=== PATIENT | male | born 1980 | race Two or more races ===

== ENCOUNTER 2019-11-29 14:40 | Day surgery (SDC) | payer OTHER ==
[2019-11-29] MEDS ORDERED: Sodium Chloride 0.9% 1,000 ML IV ONE (14:58)
[2019-11-29] MEDS ORDERED: Sodium Chloride 0.9% 2.5 ML Syringe FLUSH PRN ×3 (14:58→20:05)
[2019-11-29] MEDS ORDERED: Sodium Chloride 0.9% 10 ML Syringe FLUSH PRN ×2 (14:58→20:05)
[2019-11-29] MEDS ORDERED: Ondansetron 4 MG/2 ML SDV IVPUSH ONE (14:58)
[2019-11-29] MEDS ORDERED: Morphine 4 MG/ML Syringe IVPUSH PRN (14:59)
[2019-11-29] MEDS ORDERED: Morphine 2 MG/ML Syringe IVPUSH ONE (14:59)
--- NOTE | 2019-11-29 15:03 | EDM.PDOC ---
ED HPI GENERAL MEDICAL PROBLEM - General Chief Complaint: Abdominal Pain Stated Complaint: ABDOMINAL PAIN Time Seen by Provider: 11/29/19 14:49 - History of Present Illness INITIAL COMMENTS - FREE TEXT/NARRATIVE: History of present illness: Patient presents with abdominal pain since last night he states it came on suddenly he has been nauseous he tried to throw up but could not he states he is not passing any gas prior history of umbilical and inguinal hernia on the right he denies any other surgeries no other medical problems no allergies no fever nothing seems to make it better or worse H&P conducted with medical accounting clerk service. Review of systems: As per history of present illness and below otherwise all systems reviewed and negative. Past medical history: As per history of present illness and as reviewed below otherwise noncontributory. Surgical history: As per history of present illness and as reviewed below otherwise noncontributory. Social history: No reported history of drug or alcohol abuse. Family history: As per history of present illness and as reviewed below otherwise noncontributory. Physical exam: Constitutional: Well-developed thin male with moderate distress due to pain HEENT: Atraumatic, normocephalic, pupils reactive, negative for conjunctival pallor or scleral icterus, mucous membranes moist, throat clear, neck supple, nontender, trachea midline. Lungs: Clear to auscultation, breath sounds equal bilaterally, chest nontender. Heart: S1S2, regular, negative for clicks, rubs, or JVD. Abdomen: Soft, nondistended, tenderness and guarding. Negative for masses or hepatosplenomegaly. Negative for costovertebral tenderness. Pelvis: Stable nontender. Genitourinary: A supine exam is all this tolerated there does not appear to be any inguinal mass or scrotal mass no tenderness in the testicles no pain the penis upon circumcised no discharge. Rectal: Deferred. Extremities: Atraumatic, negative for cords or calf pain. Neurovascular unremarkable. Neuro: Awake, alert, oriented. Cranial nerves II through XII unremarkable. Cerebellum unremarkable. Motor and sensory unremarkable throughout. Exam nonfocal. Diagnostics: [] Therapeutics: [] Impression: [] Plan: Patient given medications for pain and nausea fluid bolus labs will be collected and CT abdomen pelvis will be obtained. Patient will then be reassessed [] Definitive disposition and diagnosis as appropriate pending reevaluation and review of above. LLQ Pain Score (Numeric/FACES): 10 - Related Data Allergies Allergy/AdvReac Type Severity Reaction Status Date / Time No Known Allergies Allergy Verified 11/30/19 00:21 Home Meds: Home Meds . [No Known Home Meds] 11/29/19 [History] Past Medical History HEENT History: Reports: None Cardiovascular History: Reports: None Respiratory History: Reports: None Gastrointestinal History: Reports: None Genitourinary History: Reports: None Musculoskeletal History: Reports: None Neurological History: Reports: None Psychiatric History: Reports: None Endocrine/Metabolic History: Reports: None Hematologic History: Reports: None Immunologic History: Reports: None Oncologic (Cancer) History: Reports: None Dermatologic History: Reports: None - Infectious Disease History Infectious Disease History: Reports: None - Past Surgical History Head Surgeries/Procedures: Reports: None HEENT Surgical History: Reports: None Cardiovascular Surgical History: Reports: None Respiratory Surgical History: Reports: None GI Surgical History: Reports: Hernia, Abdominal, Hernia, Inguinal Male Surgical History: Reports: None Endocrine Surgical History: Reports: None Neurological Surgical History: Reports: None Musculoskeletal Surgical History: Reports: None Oncologic Surgical History: Reports: None Dermatological Surgical History: Reports: None Social & Family History - Family History Family Medical History: Noncontributory - Tobacco Use Smoking Status *Q: Never Smoker - Caffeine Use Caffeine Use: Reports: None - Recreational Drug Use Recreational Drug Use: No ED ROS GENERAL - Review of Systems Review Of Systems: See Below ED EXAM, GENERAL - Physical Exam Exam: See Below Course - Vital Signs Text/Narrative:: At 1515 I discussed the case with see the patient. Patient was medicated with Zosyn 3.375 as well as placed on n.p.o. status and on lactated Ringer's at 150/h CT abdomen pelvis read by radiology as acute appendicitis with dilated appendix with appendicolith no free fluid Last Recorded V/S: Last Vital Signs Temp 36.3 C 11/30/19 04:32 Pulse 73 11/30/19 04:32 Resp 18 11/30/19 04:32 BP 107/76 11/30/19 04:32 Pulse Ox 96 11/30/19 04:32 - Orders/Labs/Meds Orders: Active Orders 24 hr Category Date Time Status Patient Status [ADT] Routine ADT 11/29/19 20:05 Active Intake and Output [RC] Q12H Care 11/29/19 20:06 Active Oxygen Therapy [RC] PRN Care 11/29/19 20:05 Active RT Incentive Spirometry [RC] Q1HWA Care 11/29/19 20:05 Active Up ad Cindy [RC] ASDIRECTED Care 11/29/19 20:05 Active Vital Signs [RC] Q4H Care 11/29/19 20:05 Active Regular Diet [DIET] Diet 11/30/19 Breakfast Active Acetaminophen [Ofirmev] 1,000 mg Med 11/29/19 18:25 Active Premix Bag 1 bag IV Q6H Acetaminophen/oxyCODONE [Percocet 325-5 MG] Med 11/29/19 20:05 Active 2 tab PO Q4H PRN HYDROmorphone [Dilaudid] Med 11/29/19 20:05 Active 0.5 mg IVPUSH Q1H PRN Ketorolac [Toradol] Med 11/29/19 20:07 Active 10 mg PO Q6H PRN Lactated Ringers [Ringers, Lactated] 1,000 ml Med 11/29/19 20:15 Active IV ASDIRECTED Ondansetron [Zofran] Med 11/29/19 20:05 Active 4 mg IVPUSH Q6H PRN Sodium Chloride 0.9% [Normal Saline] Med 11/29/19 20:05 Active 10 ml IV ASDIRECTED PRN Sodium Chloride 0.9% [Saline Flush] Med 11/29/19 14:58 Active 10 ml FLUSH ASDIRECTED PRN Sodium Chloride 0.9% [Saline Flush] Med 11/29/19 20:05 Active 10 ml FLUSH ASDIRECTED PRN Sodium Chloride 0.9% [Saline Flush] Med 11/29/19 14:58 Active 2.5 ml FLUSH ASDIRECTED PRN Sodium Chloride 0.9% [Saline Flush] Med 11/29/19 14:58 Active 2.5 ml FLUSH ASDIRECTED PRN Sodium Chloride 0.9% [Saline Flush] Med 11/29/19 20:05 Active 2.5 ml FLUSH ASDIRECTED PRN diphenhydrAMINE [Benadryl] Med 11/29/19 20:05 Active 25 mg IVPUSH Q4H PRN Peripheral IV Insertion Adult [OM.PC] Urgent Oth 11/29/19 20:05 Ordered Saline Lock Insert [OM.PC] Stat Oth 11/29/19 14:58 Ordered Resuscitation Status Routine Resus Stat 11/29/19 20:05 Ordered Medication Orders Diphenhydramine HCl (Benadryl) 25 mg IVPUSH Q4H PRN PRN Reason: Itching Hydromorphone HCl (Dilaudid) 0.5 mg IVPUSH Q1H PRN PRN Reason: Pain (severe 7-10) Acetaminophen 1,000 mg/ Premix 100 mls @ 400 mls/hr IV Q6H PRN PRN Reason: Pain Lactated Ringer's (Ringers, Lactated) 1,000 mls @ 125 mls/hr IV ASDIRECTED MALVIN Last Admin: 11/30/19 04:05 Dose: 125 mls/hr Documented by: AGUSTÍN Ketorolac Tromethamine (Toradol) 10 mg PO Q6H PRN PRN Reason: Abdominal Pain Stop: 12/04/19 20:08 Ondansetron HCl (Zofran) 4 mg IVPUSH Q6H PRN PRN Reason: Nausea/Vomiting Oxycodone/Acetaminophen (Percocet 325-5 Mg) 2 tab PO Q4H PRN PRN Reason: Pain (moderate 4-6) Sodium Chloride (Saline Flush) 2.5 ml FLUSH ASDIRECTED PRN PRN Reason: Keep Vein Open Last Admin: 11/29/19 15:31 Dose: 2.5 ml Documented by: VIALMEL Sodium Chloride (Saline Flush) 10 ml FLUSH ASDIRECTED PRN PRN Reason: Keep Vein Open Last Admin: 11/29/19 15:31 Dose: 10 ml Documented by: VIALMEL Sodium Chloride (Saline Flush) 2.5 ml FLUSH ASDIRECTED PRN PRN Reason: Keep Vein Open Last Admin: 11/29/19 15:31 Dose: 2.5 ml Documented by: VIALMEL Sodium Chloride (Saline Flush) 10 ml FLUSH ASDIRECTED PRN PRN Reason: Keep Vein Open Sodium Chloride (Saline Flush) 2.5 ml FLUSH ASDIRECTED PRN PRN Reason: Keep Vein Open Sodium Chloride (Normal Saline) 10 ml IV ASDIRECTED PRN PRN Reason: IV Use Labs: Laboratory Tests 11/29/19 11/29/19 11/29/19 Range/Units 15:00 15:00 16:55 WBC 14.57 H (4.0-11.0) K/uL RBC 4.75 (4.50-5.90) M/uL Hgb 14.9 (13.0-17.0) g/dL Hct 44.2 (38.0-50.0) % MCV 93.1 (80.0-98.0) fL MCH 31.4 (27.0-32.0) pg MCHC 33.7 (31.0-37.0) g/dL RDW Std Deviation 44.9 (28.0-62.0) fl RDW Coeff of Uday 13 (11.0-15.0) % Plt Count 287 (150-400) K/uL MPV 10.00 (7.40-12.00) fL Neut % (Auto) 79.9 (48.0-80.0) % Lymph % (Auto) 16.3 (16.0-40.0) % [place] % (Auto) 3.6 (0.0-15.0) % Eos % (Auto) 0.1 (0.0-7.0) % Baso % (Auto) 0.1 (0.0-1.5) % Neut # (Auto) 11.7 H (1.4-5.7) K/uL Lymph # (Auto) 2.4 (0.6-2.4) K/uL [place] # (Auto) 0.5 (0.0-0.8) K/uL Eos # (Auto) 0.0 (0.0-0.7) K/uL Baso # (Auto) 0.0 (0.0-0.1) K/uL Nucleated RBC % 0.0 /100WBC Nucleated RBCs # 0 K/uL Sodium 138 (136-148) mmol/L Potassium 3.7 (3.5-5.1) mmol/L Chloride 101 (98-107) mmol/L Carbon Dioxide 24.0 (21.0-32.0) mmol/L BUN 20 H (7.0-18.0) mg/dL Creatinine 1.1 (0.8-1.3) mg/dL Est Cr Clr Drug Dosing 92.82 mL/min Estimated GFR (MDRD) > 60.0 ml/min Glucose 154 H (74-106) mg/dL Calcium 9.3 (8.5-10.1) mg/dL Total Bilirubin 0.5 (0.2-1.0) mg/dL AST 18 (15-37) IU/L ALT 27 (14-63) IU/L Alkaline Phosphatase 87 (46-116) U/L Total Protein 7.8 (6.4-8.2) g/dL Albumin 4.5 (3.4-5.0) g/dL Globulin 3.3 (2.6-4.0) g/dL Albumin/Globulin Ratio 1.4 (0.9-1.6) Lipase 99 (73-393) U/L Urine Color Urine Appearance Urine pH (5.0-8.0) Ur Specific [place] (1.001-1.035) Urine Protein (NEGATIVE) mg/dL Urine Glucose (UA) (NEGATIVE) mg/dL Urine Ketones (NEGATIVE) mg/dL Urine Occult Blood (NEGATIVE) Urine Nitrite (NEGATIVE) Urine Bilirubin (NEGATIVE) Urine Urobilinogen (<2.0) EU/dL Ur Leukocyte Esterase (NEGATIVE) Urine RBC (0-2/HPF) Urine WBC (0-5/HPF) Ur Epithelial Cells (NONE-FEW) Urine Bacteria (NEGATIVE) SARS-CoV-2 RNA (RT-PCR) NEGATIVE (NEGATIVE) 11/30/19 Range/Units 01:05 WBC (4.0-11.0) K/uL RBC (4.50-5.90) M/uL Hgb (13.0-17.0) g/dL Hct (38.0-50.0) % MCV (80.0-98.0) fL MCH (27.0-32.0) pg MCHC (31.0-37.0) g/dL RDW Std Deviation (28.0-62.0) fl RDW Coeff of Uday (11.0-15.0) % Plt Count (150-400) K/uL MPV (7.40-12.00) fL Neut % (Auto) (48.0-80.0) % Lymph % (Auto) (16.0-40.0) % [place] % (Auto) (0.0-15.0) % Eos % (Auto) (0.0-7.0) % Baso % (Auto) (0.0-1.5) % Neut # (Auto) (1.4-5.7) K/uL Lymph # (Auto) (0.6-2.4) K/uL [place] # (Auto) (0.0-0.8) K/uL Eos # (Auto) (0.0-0.7) K/uL Baso # (Auto) (0.0-0.1) K/uL Nucleated RBC % /100WBC Nucleated RBCs # K/uL Sodium (136-148) mmol/L Potassium (3.5-5.1) mmol/L Chloride (98-107) mmol/L Carbon Dioxide (21.0-32.0) mmol/L BUN (7.0-18.0) mg/dL Creatinine (0.8-1.3) mg/dL Est Cr Clr Drug Dosing mL/min Estimated GFR (MDRD) ml/min Glucose (74-106) mg/dL Calcium (8.5-10.1) mg/dL Total Bilirubin (0.2-1.0) mg/dL AST (15-37) IU/L ALT (14-63) IU/L Alkaline Phosphatase (46-116) U/L Total Protein (6.4-8.2) g/dL Albumin (3.4-5.0) g/dL Globulin (2.6-4.0) g/dL Albumin/Globulin Ratio (0.9-1.6) Lipase (73-393) U/L Urine Color YELLOW Urine Appearance CLEAR Urine pH 6.0 (5.0-8.0) Ur Specific [place] 1.020 (1.001-1.035) Urine Protein NEGATIVE (NEGATIVE) mg/dL Urine Glucose (UA) NEGATIVE (NEGATIVE) mg/dL Urine Ketones NEGATIVE (NEGATIVE) mg/dL Urine Occult Blood NEGATIVE (NEGATIVE) Urine Nitrite NEGATIVE (NEGATIVE) Urine Bilirubin NEGATIVE (NEGATIVE) Urine Urobilinogen 0.2 (<2.0) EU/dL Ur Leukocyte Esterase NEGATIVE (NEGATIVE) Urine RBC 0-1 (0-2/HPF) Urine WBC 1-3 (0-5/HPF) Ur Epithelial Cells RARE (NONE-FEW) Urine Bacteria RARE (NEGATIVE) SARS-CoV-2 RNA (RT-PCR) (NEGATIVE) Meds: Medications Generic Name Dose Route Start Last Admin Trade Name Freq PRN Reason Stop Dose Admin Diphenhydramine HCl 25 mg 11/29/19 20:05 Benadryl IVPUSH Q4H PRN Itching Hydromorphone HCl 0.5 mg 11/29/19 20:05 Dilaudid IVPUSH Q1H PRN Pain (severe 7-10) Acetaminophen 1,000 mg/ Premix 100 mls @ 400 mls/hr 11/29/19 18:25 IV Q6H PRN Pain Lactated Ringer's 1,000 mls @ 125 mls/hr 11/29/19 20:15 11/30/19 04:05 Ringers, Lactated IV 125 mls/hr ASDIRECTED MALVIN Administration Ketorolac Tromethamine 10 mg 11/29/19 20:07 Toradol PO 12/04/19 20:08 Q6H PRN Abdominal Pain Ondansetron HCl 4 mg 11/29/19 20:05 Zofran IVPUSH Q6H PRN Nausea/Vomiting Oxycodone/Acetaminophen 2 tab 11/29/19 20:05 Percocet 325-5 Mg PO Q4H PRN Pain (moderate 4-6) Sodium Chloride 2.5 ml 11/29/19 14:58 11/29/19 15:31 Saline Flush FLUSH 2.5 ml ASDIRECTED PRN Administration Keep Vein Open Sodium Chloride 10 ml 11/29/19 14:58 11/29/19 15:31 Saline Flush FLUSH 10 ml ASDIRECTED PRN Administration Keep Vein Open Sodium Chloride 2.5 ml 11/29/19 14:58 11/29/19 15:31 Saline Flush FLUSH 2.5 ml ASDIRECTED PRN Administration Keep Vein Open Sodium Chloride 10 ml 11/29/19 20:05 Saline Flush FLUSH ASDIRECTED PRN Keep Vein Open Sodium Chloride 2.5 ml 11/29/19 20:05 Saline Flush FLUSH ASDIRECTED PRN Keep Vein Open Sodium Chloride 10 ml 11/29/19 20:05 Normal Saline IV ASDIRECTED PRN IV Use Discontinued Medications Generic Name Dose Route Start Last Admin Trade Name Freq PRN Reason Stop Dose Admin Bupivacaine HCl Confirm 11/29/19 18:18 Marcaine 0.5% Administered 11/29/19 18:19 Dose 30 ml .ROUTE .STK-MED ONE Fentanyl Confirm 11/29/19 18:16 Sublimaze Administered 11/29/19 18:17 Dose 250 mcg .ROUTE .STK-MED ONE Fentanyl 50 mcg 11/29/19 18:25 Sublimaze IVPUSH Q5M PRN Pain Glycopyrrolate Confirm 11/29/19 18:16 Robinul Administered 11/29/19 18:17 Dose 0.2 mg .ROUTE .STK-MED ONE Sodium Chloride 1,000 mls @ 999 mls/hr 11/29/19 14:58 11/29/19 15:03 Normal Saline IV 11/29/19 15:58 999 mls/hr BOLUS ONE Administration Lactated Ringer's 1,000 mls @ 150 mls/hr 11/29/19 16:53 11/29/19 18:23 Ringers, Lactated IV 11/29/19 23:32 150 mls/hr STAT STA Administration Piperacillin Sod/Tazobactam 50 mls @ 100 mls/hr 11/29/19 16:54 11/29/19 17:00 Sod 3.375 gm/ Sodium Chloride IV 11/29/19 17:23 100 mls/hr ONETIME ONE Administration Iopamidol 100 ml 11/29/19 16:16 11/29/19 16:17 Isovue-300 (61%) IVPUSH 11/29/19 16:17 100 ml ONETIME STA Administration Ketorolac Tromethamine Confirm 11/29/19 18:16 Toradol Administered 11/29/19 18:17 Dose 30 mg .ROUTE .STK-MED ONE Lidocaine Confirm 11/29/19 18:16 Xylocaine-Mpf 2% Administered 11/29/19 18:17 Dose 5 ml .ROUTE .STK-MED ONE Midazolam HCl Confirm 11/29/19 18:16 Versed 1 Mg/Ml Administered 11/29/19 18:17 Dose 2 mg .ROUTE .STK-MED ONE Morphine Sulfate 4 mg 11/29/19 14:59 11/29/19 15:29 Morphine IVPUSH 4 mg Q2H PRN Administration Pain (moderate 4-6) Morphine Sulfate 4 mg 11/29/19 14:59 11/29/19 15:03 Morphine IVPUSH 11/29/19 15:00 4 mg ONETIME ONE Administration Ondansetron HCl 4 mg 11/29/19 14:58 11/29/19 15:03 Zofran IVPUSH 11/29/19 14:59 4 mg ONETIME ONE Administration Ondansetron HCl Confirm 11/29/19 18:16 Zofran Administered 11/29/19 18:17 Dose 4 mg .ROUTE .STK-MED ONE Propofol Confirm 11/29/19 18:16 Diprivan 20 Ml Administered 11/29/19 18:17 Dose 200 mg .ROUTE .STK-MED ONE Rocuronium [place] Confirm 11/29/19 18:16 Rocuronium [place] Administered 11/29/19 18:17 Dose 50 mg .ROUTE .STK-MED ONE Sugammadex Sodium Confirm 11/29/19 18:27 Bridion Administered 11/29/19 18:28 Dose 200 mg .ROUTE .STK-MED ONE Departure - Departure Time of Disposition: 17:18 Disposition: Refer to Observation Condition: Good Clinical Impression: Appendicitis Qualifiers: Appendicitis type: acute appendicitis - Discharge Information *PRESCRIPTION DRUG MONITORING PROGRAM REVIEWED*: Not Applicable *COPY OF PRESCRIPTION DRUG MONITORING REPORT IN PATIENT RUBY: Not Applicable Sepsis Event Note (ED) - Evaluation Sepsis Screening Result: No Definite Risk - Focused Exam Vital Signs: Vital Signs Temp Pulse Resp BP Pulse Ox Pulse Ox 11/30/19 04:32 36.3 C 73 18 107/76 96 11/30/19 00:45 62 14 110/47 L 96 11/29/19 23:45 61 14 107/60 96 11/29/19 23:20 36.3 C 62 18 107/51 L 96 11/29/19 22:45 71 12 107/63 97 11/29/19 22:15 70 12 125/72 96 11/29/19 21:45 73 12 116/68 98 11/29/19 21:30 67 14 120/70 97 11/29/19 21:15 72 14 119/65 97 11/29/19 21:00 71 12 108/58 L 96 11/29/19 20:45 37.1 C 73 20 112/65 96 11/29/19 20:38 73 13 108/47 L 96 11/29/19 20:33 82 12 104/47 L 98 11/29/19 20:27 69 12 106/64 96 11/29/19 20:22 75 14 110/56 L 97 11/29/19 20:17 63 12 100/58 L 100 11/29/19 20:13 67 12 102/58 L 100 11/29/19 20:08 64 12 102/52 L 100 11/29/19 20:05 97 11/29/19 20:01 36.6 C 69 16 97/55 L 99 - My Orders Last 24 Hours: My Active Orders 11/29/19 14:58 Sodium Chloride 0.9% [Saline Flush] 10 ml FLUSH ASDIRECTED PRN Sodium Chloride 0.9% [Saline Flush] 2.5 ml FLUSH ASDIRECTED PRN Sodium Chloride 0.9% [Saline Flush] 2.5 ml FLUSH ASDIRECTED PRN Saline Lock Insert [OM.PC] Stat - Assessment/Plan Last 24 Hours: My Active Orders 11/29/19 14:58 Sodium Chloride 0.9% [Saline Flush] 10 ml FLUSH ASDIRECTED PRN Sodium Chloride 0.9% [Saline Flush] 2.5 ml FLUSH ASDIRECTED PRN Sodium Chloride 0.9% [Saline Flush] 2.5 ml FLUSH ASDIRECTED PRN Saline Lock Insert [OM.PC] Stat
[2019-11-29 15:39] LABS: BLOOD UREA NITROGEN,BUN 20 mg/dL (7.0-18.0); CHLORIDE,CL 101 mmol/L (98-107); GLUCOSE RANDOM 154 mg/dL (74-106); LIPASE 99 U/L (73-393); POTASSIUM,K 3.7 mmol/L (3.5-5.1); SODIUM,NA 138 mmol/L (136-148)
[2019-11-29] MEDS ORDERED: Iopamidol 612 MG/ML 100 ML Bottle IVPUSH STA (16:16)
--- NOTE | 2019-11-29 16:50 | CT ---
INDICATION: Severe lower abdominal pain. TECHNIQUE: Contrast-enhanced CT of the abdomen and pelvis. 100 cc nonionic is a [place] 300 administered. COMPARISON: None. FINDINGS: The appendix is distended up to between 10 and 11 mm best appreciated on coronal reconstructed images 36-53 series 203 and sagittal reconstructed image 42 series 204. High-density material is identified within the appendix likely several appendicoliths. There is no periappendiceal fat stranding. No bowel obstruction. Clinical and laboratory correlation recommended. Clear included lung bases. The liver, spleen, pancreas, gallbladder, both adrenal glands and both kidneys are within normal limits. Normal caliber abdominal aorta and iliac arteries. Normal inferior vena cava. Urinary bladder, prostate gland, and seminal vesicles are normal. The included skeleton is within normal limits. IMPRESSION: 1. Distended appendix measuring between 10 and 11 mm containing several high-density foci likely appendicoliths. Early appendicitis cannot be excluded but please note there is no significant periappendiceal fat stranding or fluid. Clinical and laboratory correlation recommended. Surgical consultation may be helpful. 2. The examination is otherwise negative. Please note that all CT scans at this facility use dose modulation, iterative reconstruction, and/or weight-based dosing when appropriate to reduce radiation dose to as low as reasonably achievable. Dictated by Daniel Clayton MD @ Nov 29 2019 4:31PM Signed by Dr. Daniel Clayton @ Nov 29 2019 4:48PM
[2019-11-29] MEDS ORDERED: Piperacillin/Tazobactam 3.375 GM in Sodium Chloride 0.9% 50 ML IV ONE (16:54)
[2019-11-29] MEDS: Lactated Ringers 1,000 ML IV STA ×2 (17:00→18:23)
[2019-11-29] MEDS ORDERED: fentaNYL 250 MCG/5 ML SDV ONE (18:16)
[2019-11-29] MEDS ORDERED: Ketorolac 30 MG/ML SDV ONE (18:16)
[2019-11-29] MEDS ORDERED: Glycopyrrolate 0.2 MG/ML SDV ONE (18:16)
[2019-11-29] MEDS ORDERED: Lidocaine 2% 5 ML SDV ONE (18:16)
[2019-11-29] MEDS ORDERED: Propofol 200 MG/20 ML SDV ONE (18:16)
[2019-11-29] MEDS ORDERED: Ondansetron 4 MG/2 ML SDV ONE (18:16)
[2019-11-29] MEDS ORDERED: Rocuronium Bromide 50 MG/5 ML Syringe ONE (18:16)
[2019-11-29] MEDS ORDERED: Midazolam 1 MG/ML 2 ML SDV ONE (18:16)
[2019-11-29] MEDS ORDERED: Bupivacaine 0.5% 30 ML SDV ONE (18:18)
[2019-11-29] MEDS ORDERED: Acetaminophen 1,000 MG in Premix Bag 1 BAG IV PRN (18:25)
[2019-11-29] MEDS ORDERED: fentaNYL 100 MCG/2 ML SDV IVPUSH PRN (18:25)
[2019-11-29] MEDS ORDERED: Sugammadex Sodium 200 MG/2 ML VIAL ONE (18:27)
--- NOTE | 2019-11-29 18:35 | PCM.PREANE ---
Preanesthetic Assessment - Anesthesia/Transfusion/Family Hx Anesthesia History: Prior Anesthesia Without Reaction Family History of Anesthesia Reaction: No - Review of Systems Gastrointestinal: Abdominal Pain - Physical Assessment NPO Status Date: 11/29/19 NPO Status Time: 11:00 Vital Signs: Last Vital Signs Temp 35.5 C L 11/29/19 17:08 Pulse 73 11/29/19 17:08 Resp 17 11/29/19 17:08 BP 111/58 L 11/29/19 17:08 Pulse Ox 98 11/29/19 17:08 Height: 1.76 m Weight: 86.183 kg ASA Class: 1E - Lab Values: Laboratory Last Values WBC 14.57 K/uL (4.0-11.0) H 11/29/19 15:00 RBC 4.75 M/uL (4.50-5.90) 11/29/19 15:00 Hgb 14.9 g/dL (13.0-17.0) 11/29/19 15:00 Hct 44.2 % (38.0-50.0) 11/29/19 15:00 MCV 93.1 fL (80.0-98.0) 11/29/19 15:00 MCH 31.4 pg (27.0-32.0) 11/29/19 15:00 MCHC 33.7 g/dL (31.0-37.0) 11/29/19 15:00 RDW Std Deviation 44.9 fl (28.0-62.0) 11/29/19 15:00 RDW Coeff of Uday 13 % (11.0-15.0) 11/29/19 15:00 Plt Count 287 K/uL (150-400) 11/29/19 15:00 MPV 10.00 fL (7.40-12.00) 11/29/19 15:00 Neut % (Auto) 79.9 % (48.0-80.0) 11/29/19 15:00 Lymph % (Auto) 16.3 % (16.0-40.0) 11/29/19 15:00 [place] % (Auto) 3.6 % (0.0-15.0) 11/29/19 15:00 Eos % (Auto) 0.1 % (0.0-7.0) 11/29/19 15:00 Baso % (Auto) 0.1 % (0.0-1.5) 11/29/19 15:00 Neut # (Auto) 11.7 K/uL (1.4-5.7) H 11/29/19 15:00 Lymph # (Auto) 2.4 K/uL (0.6-2.4) 11/29/19 15:00 [place] # (Auto) 0.5 K/uL (0.0-0.8) 11/29/19 15:00 Eos # (Auto) 0.0 K/uL (0.0-0.7) 11/29/19 15:00 Baso # (Auto) 0.0 K/uL (0.0-0.1) 11/29/19 15:00 Nucleated RBC % 0.0 /100WBC 11/29/19 15:00 Nucleated RBCs # 0 K/uL 11/29/19 15:00 Sodium 138 mmol/L (136-148) 11/29/19 15:00 Potassium 3.7 mmol/L (3.5-5.1) 11/29/19 15:00 Chloride 101 mmol/L (98-107) 11/29/19 15:00 Carbon Dioxide 24.0 mmol/L (21.0-32.0) 11/29/19 15:00 BUN 20 mg/dL (7.0-18.0) H 11/29/19 15:00 Creatinine 1.1 mg/dL (0.8-1.3) 11/29/19 15:00 Est Cr Clr Drug Dosing 92.82 mL/min 11/29/19 15:00 Estimated GFR (MDRD) > 60.0 ml/min 11/29/19 15:00 Glucose 154 mg/dL (74-106) H 11/29/19 15:00 Calcium 9.3 mg/dL (8.5-10.1) 11/29/19 15:00 Total Bilirubin 0.5 mg/dL (0.2-1.0) 11/29/19 15:00 AST 18 IU/L (15-37) 11/29/19 15:00 ALT 27 IU/L (14-63) 11/29/19 15:00 Alkaline Phosphatase 87 U/L (46-116) 11/29/19 15:00 Total Protein 7.8 g/dL (6.4-8.2) 11/29/19 15:00 Albumin 4.5 g/dL (3.4-5.0) 11/29/19 15:00 Globulin 3.3 g/dL (2.6-4.0) 11/29/19 15:00 Albumin/Globulin Ratio 1.4 (0.9-1.6) 11/29/19 15:00 Lipase 99 U/L (73-393) 11/29/19 15:00 SARS-CoV-2 RNA (RT-PCR) NEGATIVE (NEGATIVE) 11/29/19 16:55 - Allergies Allergies/Adverse Reactions: Allergies Allergy/AdvReac Type Severity Reaction Status Date / Time No Known Allergies Allergy Verified 11/29/19 14:56 - Acknowledgements Anesthesia Type Planned: General Anesthesia Pt an Appropriate Candidate for the Planned Anesthesia: Yes Alternatives and Risks of Anesthesia Discussed w Pt/Guardian: Yes Pt/Guardian Understands and Agrees with Anesthesia Plan: Yes PreAnesthesia Questionnaire HEENT History: Reports: None Cardiovascular History: Reports: None Respiratory History: Reports: None Gastrointestinal History: Reports: None Genitourinary History: Reports: None Musculoskeletal History: Reports: None Neurological History: Reports: None Psychiatric History: Reports: None Endocrine/Metabolic History: Reports: None Hematologic History: Reports: None Immunologic History: Reports: None Oncologic (Cancer) History: Reports: None Dermatologic History: Reports: None - Infectious Disease History Infectious Disease History: Reports: None - Past Surgical History Head Surgeries/Procedures: Reports: None HEENT Surgical History: Reports: None Cardiovascular Surgical History: Reports: None Respiratory Surgical History: Reports: None GI Surgical History: Reports: Hernia, Abdominal, Hernia, Inguinal Male Surgical History: Reports: None Endocrine Surgical History: Reports: None Neurological Surgical History: Reports: None Musculoskeletal Surgical History: Reports: None Oncologic Surgical History: Reports: None Dermatological Surgical History: Reports: None - SUBSTANCE USE Smoking Status *Q: Never Smoker Recreational Drug Use History: No - HOME MEDS Home Medications: Home Meds . [No Known Home Meds] 11/29/19 [History] - CURRENT (IN HOUSE) MEDS Current Meds: Current Medications Fentanyl (Sublimaze) 50 mcg IVPUSH Q5M PRN PRN Reason: Pain Lactated Ringer's (Ringers, Lactated) 1,000 mls @ 150 mls/hr IV STAT STA Stop: 11/29/19 23:32 Last Admin: 11/29/19 18:23 Dose: 150 mls/hr Documented by: Acetaminophen 1,000 mg/ Premix 100 mls @ 400 mls/hr IV Q6H PRN PRN Reason: Pain Morphine Sulfate (Morphine) 4 mg IVPUSH Q2H PRN PRN Reason: Pain (moderate 4-6) Last Admin: 11/29/19 15:29 Dose: 4 mg Documented by: Sodium Chloride (Saline Flush) 2.5 ml FLUSH ASDIRECTED PRN PRN Reason: Keep Vein Open Last Admin: 11/29/19 15:31 Dose: 2.5 ml Documented by: Sodium Chloride (Saline Flush) 10 ml FLUSH ASDIRECTED PRN PRN Reason: Keep Vein Open Last Admin: 11/29/19 15:31 Dose: 10 ml Documented by: Sodium Chloride (Saline Flush) 2.5 ml FLUSH ASDIRECTED PRN PRN Reason: Keep Vein Open Last Admin: 11/29/19 15:31 Dose: 2.5 ml Documented by: Discontinued Medications Bupivacaine HCl (Marcaine 0.5%) Confirm Administered Dose 30 ml .ROUTE .STK-MED ONE Stop: 11/29/19 18:19 Fentanyl (Sublimaze) Confirm Administered Dose 250 mcg .ROUTE .STK-MED ONE Stop: 11/29/19 18:17 Glycopyrrolate (Robinul) Confirm Administered Dose 0.2 mg .ROUTE .STK-MED ONE Stop: 11/29/19 18:17 Sodium Chloride (Normal Saline) 1,000 mls @ 999 mls/hr IV BOLUS ONE Stop: 11/29/19 15:58 Last Admin: 11/29/19 15:03 Dose: 999 mls/hr Documented by: Piperacillin Sod/Tazobactam (Sod 3.375 gm/ Sodium Chloride) 50 mls @ 100 mls/hr IV ONETIME ONE Stop: 11/29/19 17:23 Last Admin: 11/29/19 17:00 Dose: 100 mls/hr Documented by: Iopamidol (Isovue-300 (61%)) 100 ml IVPUSH ONETIME STA Stop: 11/29/19 16:17 Last Admin: 11/29/19 16:17 Dose: 100 ml Documented by: Ketorolac Tromethamine (Toradol) Confirm Administered Dose 30 mg .ROUTE .STK-MED ONE Stop: 11/29/19 18:17 Lidocaine (Xylocaine-Mpf 2%) Confirm Administered Dose 5 ml .ROUTE .STK-MED ONE Stop: 11/29/19 18:17 Midazolam HCl (Versed 1 Mg/Ml) Confirm Administered Dose 2 mg .ROUTE .STK-MED ONE Stop: 11/29/19 18:17 Morphine Sulfate (Morphine) 4 mg IVPUSH ONETIME ONE Stop: 11/29/19 15:00 Last Admin: 11/29/19 15:03 Dose: 4 mg Documented by: Ondansetron HCl (Zofran) 4 mg IVPUSH ONETIME ONE Stop: 11/29/19 14:59 Last Admin: 11/29/19 15:03 Dose: 4 mg Documented by: Ondansetron HCl (Zofran) Confirm Administered Dose 4 mg .ROUTE .STK-MED ONE Stop: 11/29/19 18:17 Propofol (Diprivan 20 Ml) Confirm Administered Dose 200 mg .ROUTE .STK-MED ONE Stop: 11/29/19 18:17 Rocuronium [place] (Rocuronium [place]) Confirm Administered Dose 50 mg .ROUTE .STK-MED ONE Stop: 11/29/19 18:17 Sugammadex Sodium (Bridion) Confirm Administered Dose 200 mg .ROUTE .STK-MED ONE Stop: 11/29/19 18:28
--- NOTE | 2019-11-29 20:02 | PCM.HP.2 ---
H&P History of Present Illness - General Date of Service: 11/29/19 Admit Problem/Dx: Admission Diagnosis/Problem Admission Diagnosis/Problem Appendicitis Source of Information: Patient History Limitations: Reports: No Limitations - History of Present Illness Initial Comments - Free Text/Narative: Patient is a 39 year old Kinyarwanda speaking male who presents with a one day hist ory of abdominal pain. It started as a generalized abdominal pain associated with nausea. It got worse with time and migrated to the lower abdomen. He had breakfast this morning, but then vomited twice. He c/o chills. Denies fever. He presented to the ER. His vitals were stable. He had an elevated WBC at 14K. CT abdomen pelvis showed a dilated appendix containing multiple appendicoliths concerning for possible appendicitis. LLQ Pain Score (Numeric/FACES): 10 - Related Data Allergies/Adverse Reactions: Allergies Allergy/AdvReac Type Severity Reaction Status Date / Time No Known Allergies Allergy Verified 11/29/19 14:56 Home Medications: Home Meds . [No Known Home Meds] 11/29/19 [History] Past Medical History HEENT History: Reports: None Cardiovascular History: Reports: None Respiratory History: Reports: None Gastrointestinal History: Reports: None Genitourinary History: Reports: None Musculoskeletal History: Reports: None Neurological History: Reports: None Psychiatric History: Reports: None Endocrine/Metabolic History: Reports: None Hematologic History: Reports: None Immunologic History: Reports: None Oncologic (Cancer) History: Reports: None Dermatologic History: Reports: None - Infectious Disease History Infectious Disease History: Reports: None - Past Surgical History Head Surgeries/Procedures: Reports: None HEENT Surgical History: Reports: None Cardiovascular Surgical History: Reports: None Respiratory Surgical History: Reports: None GI Surgical History: Reports: Hernia, Abdominal, Hernia, Inguinal Male Surgical History: Reports: None Endocrine Surgical History: Reports: None Neurological Surgical History: Reports: None Musculoskeletal Surgical History: Reports: None Oncologic Surgical History: Reports: None Dermatological Surgical History: Reports: None Social & Family History - Family History Family Medical History: Noncontributory - Tobacco Use Smoking Status *Q: Never Smoker - Caffeine Use Caffeine Use: Reports: None - Recreational Drug Use Recreational Drug Use: No H&P Review of Systems - Review of Systems: Review Of Systems: Comprehensive ROS is negative, except as noted in HPI. Exam - Exam Exam: See Below - Vital Signs Vital Signs: Last Vital Signs Temp 35.5 C L 11/29/19 17:08 Pulse 73 11/29/19 17:08 Resp 17 11/29/19 17:08 BP 111/58 L 11/29/19 17:08 Pulse Ox 98 11/29/19 17:08 Weight: 86.183 kg - Exam Quality Assessment: Supplemental Oxygen General: Alert, Oriented, Cooperative HEENT: Conjunctiva Clear, Mucosa Moist & [place], Posterior Pharynx Clear Neck: Supple, Trachea Midline Lungs: Clear to Auscultation, Normal Respiratory Effort Cardiovascular: Regular Rate, Regular Rhythm GI/Abdominal Exam: Soft, Non-Tender, No Distention, No Mass, Guarding (Lower abdomen ), Tender (RLQ). No: Rigid, Rebound (Male) Exam: Normal Inspection Extremities: Normal Inspection, Normal Range of Motion - Patient Data Lab Results Last 24 hrs: Laboratory Results - last 24 hr 11/29/19 11/29/19 11/29/19 Range/Units 15:00 15:00 16:55 WBC 14.57 H (4.0-11.0) K/uL RBC 4.75 (4.50-5.90) M/uL Hgb 14.9 (13.0-17.0) g/dL Hct 44.2 (38.0-50.0) % MCV 93.1 (80.0-98.0) fL MCH 31.4 (27.0-32.0) pg MCHC 33.7 (31.0-37.0) g/dL RDW Std Deviation 44.9 (28.0-62.0) fl RDW Coeff of Uday 13 (11.0-15.0) % Plt Count 287 (150-400) K/uL MPV 10.00 (7.40-12.00) fL Neut % (Auto) 79.9 (48.0-80.0) % Lymph % (Auto) 16.3 (16.0-40.0) % [place] % (Auto) 3.6 (0.0-15.0) % Eos % (Auto) 0.1 (0.0-7.0) % Baso % (Auto) 0.1 (0.0-1.5) % Neut # (Auto) 11.7 H (1.4-5.7) K/uL Lymph # (Auto) 2.4 (0.6-2.4) K/uL [place] # (Auto) 0.5 (0.0-0.8) K/uL Eos # (Auto) 0.0 (0.0-0.7) K/uL Baso # (Auto) 0.0 (0.0-0.1) K/uL Nucleated RBC % 0.0 /100WBC Nucleated RBCs # 0 K/uL Sodium 138 (136-148) mmol/L Potassium 3.7 (3.5-5.1) mmol/L Chloride 101 (98-107) mmol/L Carbon Dioxide 24.0 (21.0-32.0) mmol/L BUN 20 H (7.0-18.0) mg/dL Creatinine 1.1 (0.8-1.3) mg/dL Est Cr Clr Drug Dosing 92.82 mL/min Estimated GFR (MDRD) > 60.0 ml/min Glucose 154 H (74-106) mg/dL Calcium 9.3 (8.5-10.1) mg/dL Total Bilirubin 0.5 (0.2-1.0) mg/dL AST 18 (15-37) IU/L ALT 27 (14-63) IU/L Alkaline Phosphatase 87 (46-116) U/L Total Protein 7.8 (6.4-8.2) g/dL Albumin 4.5 (3.4-5.0) g/dL Globulin 3.3 (2.6-4.0) g/dL Albumin/Globulin Ratio 1.4 (0.9-1.6) Lipase 99 (73-393) U/L SARS-CoV-2 RNA (RT-PCR) NEGATIVE (NEGATIVE) Result Diagrams: 11/29/19 15:00 11/29/19 15:00 Sepsis Event Note - Evaluation Sepsis Screening Result: No Definite Risk - Focused Exam Vital Signs: Vital Signs Temp Pulse Resp BP Pulse Ox 11/29/19 17:08 35.5 C L 73 17 111/58 L 98 11/29/19 14:53 56 L 20 101/60 99 Date Exam was Performed: 11/29/19 Time Exam was Performed: 19:57 - Problem List (1) Appendicitis SNOMED Code(s): 08625081 ICD Code: K37 - UNSPECIFIED APPENDICITIS Status: Acute Current Visit: Yes Qualifiers: Appendicitis type: acute appendicitis Problem List Initiated/Reviewed/Updated: Yes Orders Last 24hrs: Active Orders 24 hr Category Date Time Status Patient Status [ADT] Routine ADT 11/29/19 18:37 Active UA W/MICROSCOPIC [URIN] Stat Lab 11/29/19 14:59 Ordered Acetaminophen [Ofirmev] 1,000 mg Med 11/29/19 18:25 Active Premix Bag 1 bag IV Q6H Lactated Ringers [Ringers, Lactated] 1,000 ml Med 11/29/19 16:53 Active IV STAT Morphine Med 11/29/19 14:59 Active 4 mg IVPUSH Q2H PRN Sodium Chloride 0.9% [Saline Flush] Med 11/29/19 14:58 Active 10 ml FLUSH ASDIRECTED PRN Sodium Chloride 0.9% [Saline Flush] Med 11/29/19 14:58 Active 2.5 ml FLUSH ASDIRECTED PRN Sodium Chloride 0.9% [Saline Flush] Med 11/29/19 14:58 Active 2.5 ml FLUSH ASDIRECTED PRN fentaNYL [Sublimaze] Med 11/29/19 18:25 Active 50 mcg IVPUSH Q5M PRN Saline Lock Insert [OM.PC] Stat Oth 11/29/19 14:58 Ordered Medication Orders Fentanyl (Sublimaze) 50 mcg IVPUSH Q5M PRN PRN Reason: Pain Lactated Ringer's (Ringers, Lactated) 1,000 mls @ 150 mls/hr IV STAT STA Stop: 11/29/19 23:32 Last Admin: 11/29/19 18:23 Dose: 150 mls/hr Documented by: Infusion: 11/29/19 18:23 Dose: 150 mls/hr Documented by: Admin: 11/29/19 17:00 Dose: 150 mls/hr Documented by: THOMAS Acetaminophen 1,000 mg/ Premix 100 mls @ 400 mls/hr IV Q6H PRN PRN Reason: Pain Morphine Sulfate (Morphine) 4 mg IVPUSH Q2H PRN PRN Reason: Pain (moderate 4-6) Last Admin: 11/29/19 15:29 Dose: 4 mg Documented by: ROSALEEMEL Sodium Chloride (Saline Flush) 2.5 ml FLUSH ASDIRECTED PRN PRN Reason: Keep Vein Open Last Admin: 11/29/19 15:31 Dose: 2.5 ml Documented by: KULDEEP Sodium Chloride (Saline Flush) 10 ml FLUSH ASDIRECTED PRN PRN Reason: Keep Vein Open Last Admin: 11/29/19 15:31 Dose: 10 ml Documented by: VIALMEL Sodium Chloride (Saline Flush) 2.5 ml FLUSH ASDIRECTED PRN PRN Reason: Keep Vein Open Last Admin: 11/29/19 15:31 Dose: 2.5 ml Documented by: KULDEEP Assessment/Plan Comment:: I explained the pathophysiology of appendicitis. I explained the need for an appendectomy. I will attempt it laparoscopically but will convert to open should I be unable to perform it safely. I explained the expected perioperative course as well as the risks including bleeding, infection, or damage to surrounding structures. He verbalized understanding and wishes to proceed.
[2019-11-29] MEDS ORDERED: diphenhydrAMINE 50 MG/ML SDV IVPUSH PRN (20:05)
[2019-11-29] MEDS ORDERED: Acetaminophen/oxyCODONE 325-5 MG Tab PO PRN (20:05)
[2019-11-29] MEDS ORDERED: Sodium Chloride 0.9% 10 ML SDV IV PRN (20:05)
[2019-11-29] MEDS ORDERED: Ondansetron 4 MG/2 ML SDV IVPUSH PRN (20:05)
[2019-11-29] MEDS ORDERED: HYDROmorphone 2 MG/ML Syringe IVPUSH PRN (20:05)
--- NOTE | 2019-11-29 20:05 | PCM.OPNOTE ---
- General Post-Op/Procedure Note Date of Surgery/Procedure: 11/29/19 Operative Procedure(s): Laparoscopic appendectomy Findings: Dilated and inflamed appendix with no evidence of perforation Pre Op Diagnosis: appendicitis Post-Op Diagnosis: same Anesthesia Technique: General ET Tube Primary Surgeon: Angle Cordero Fluid Replacement, Intraop: 1,000 Output, Urine Amount: 100 EBL in mLs: 5 Condition: Fair
[2019-11-29] MEDS ORDERED: Ketorolac 10 MG Tab PO PRN (20:07)
[2019-11-29] MEDS ORDERED: Lactated Ringers 1,000 ML IV SCH (20:15)
--- NOTE | 2019-11-29 20:37 | PCM.POSTAN ---
POST ANESTHESIA ASSESSMENT - MENTAL STATUS Mental Status: Alert - VITAL SIGNS Vital Signs: Last Vital Signs Temp 36.6 C 11/29/19 20:01 Pulse 82 11/29/19 20:33 Resp 12 11/29/19 20:33 BP 104/47 L 11/29/19 20:33 Pulse Ox 98 11/29/19 20:33 - RESPIRATORY Respiratory Status: Respiratory Rate WNL - CARDIOVASCULAR CV Status: Pulse Rate WNL - GASTROINTESTINAL GI Status: No Symptoms - POST OP HYDRATION Hydration Status: Adequate & Stable
--- NOTE | 2019-11-29 20:45 | OR ---
SURGEON: ANGLE CORDERO MD DATE OF PROCEDURE: 11/29/2019 PREOPERATIVE DIAGNOSIS: Acute appendicitis. POSTOPERATIVE DIAGNOSIS: Acute appendicitis. PROCEDURE PERFORMED: Laparoscopic appendectomy. PRIMARY SURGEON: Angle Cordero MD. ANESTHESIA: General endotracheal anesthesia. FLUIDS: 1000 mL crystalloid. ESTIMATED BLOOD LOSS: 5 mL. URINE OUTPUT: 100 mL. FINDINGS: Dilated and distended appendix with no evidence of perforation. COMPLICATIONS: None. INDICATIONS: The patient is a 39-year-old male who presented to the emergency room today with 24 hours of abdominal pain. Workup revealed leukocytosis, and CT scan of the abdomen and pelvis showed a dilated appendix full of appendicolith concerning for acute appendicitis. The patient and I discussed the pathophysiology of acute appendicitis. I explained the need for an appendectomy. I would attempt this laparoscopically, but should I be unable to complete it safely, we would convert to open. I explained the expected perioperative course as well as the risks including bleeding, infection, or damage to surrounding structures. He verbalized understanding and wishes to proceed. PROCEDURE IN DETAIL: The patient was brought to the OR and placed on the OR table in the supine position. A time-out was completed verifying the patient's name, age, date of , allergies, and procedure to be performed. General endotracheal anesthesia was induced. The left arm was tucked to the patient's side and a Crystal catheter was placed. The abdomen was prepped and draped in the usual standard fashion. I anesthetized an area 2 fingerbreadths below the left subcostal margin in the midclavicular line with 0.5% Marcaine plain. A 1 cm incision was made using an 11 blade. A 5 mm optical trocar was used to gain entry into the left upper quadrant under direct visualization. All layers of the abdominal wall were visualized upon entry. The abdomen was insufflated and I placed a 5 mm 30-degree scope inside. I inspected the area underneath my initial trocar placement. No damage to surrounding structures was noted. A 5 mm trocar was placed just left and lateral to the umbilicus. I then turned my attention to the right lower quadrant. The patient had a short ascending colon. Because of this anatomy, the decision was made to place my 12 mm trocar in the lower abdominal midline. I anesthetized this area with 0.5% Marcaine plain and placed a 12 mm Ritesh trocar into the abdomen under direct visualization. The patient was then placed into Trendelenburg position and airplaned slightly to the left. The appendix was retrocecal. The cecum was grasped with an atraumatic grasper and rotated medially. I immediately noticed the base of the appendix and a dilated distended appendix behind my cecum. I grasped the body of the appendix down and delivered the appendix anteriorly. I could clearly see the appendiceal mesentery and the base of the appendix. The appendiceal mesentery was taken down from distal to proximal using a Harmonic scalpel device. Care was taken to avoid injury to my surrounding structures. Once the base of the appendix was cleared away from the appendiceal mesentery, an endoscopic stapling device was brought into the field. I stapled and transected across the base of the appendix using a 45 mm blue load of maryjane. The appendix was then placed in an Endo Catch bag and removed through the 12 mm port site. The 12 mm trocar was placed back into the abdomen, and I inspected my operative field. The staple line was intact and the operative field was hemostatic. There was no free fluid within the abdomen and so no irrigation or suction was performed. The 12 mm trocar was removed, and I closed the fascia at the infraumbilical port site with an interrupted 0 Vicryl suture using a Gerson-Arcadio device. The 5 mm trocars were then removed under direct visualization, and the abdomen allowed to desufflate. I closed the subcutaneous fat layer at the infraumbilical port site with interrupted 3-0 Vicryl sutures. The skin was closed with interrupted 4-0 Monocryl sutures. The 5 mm trocar sites were closed with interrupted 4-0 Monocryl sutures. Steri-Strips and sterile dressings were applied. All counts were complete and correct at the end of the case. The patient tolerated the procedure well and was extubated and taken to PACU in stable condition. LISANDRO LLANOS /[id number] JM
[2019-11-30] MEDS ORDERED: HYDROmorphone 1 MG/ML Syringe IVPUSH PRN (07:40)
--- NOTE | 2019-11-30 09:28 | PCM.SURGPN ---
- General Info Date of Service: 11/30/19 Date of Surgery/Procedure: 11/29/19 POD#: 1 Functional Status: Reports: Pain Controlled, Tolerating Diet, Ambulating, Urinating. Denies: New Symptoms - Review of Systems General: Reports: No Symptoms HEENT: Reports: No Symptoms Pulmonary: Reports: No Symptoms Cardiovascular: Reports: No Symptoms Gastrointestinal: Reports: No Symptoms Genitourinary: Reports: No Symptoms Musculoskeletal: Reports: No Symptoms Skin: Reports: No Symptoms - Patient Data Vitals - Most Recent: Last Vital Signs Temp 36.2 C 11/30/19 07:15 Pulse 61 11/30/19 07:15 Resp 16 11/30/19 07:15 BP 113/57 L 11/30/19 07:15 Pulse Ox 97 11/30/19 07:15 Weight - Most Recent: 86.183 kg I&O - Last 24 Hours: Intake & Output 11/29/19 11/30/19 11/30/19 22:59 06:59 14:59 Intake Total 2200 1300 Output Total 200 840 Balance 2000 460 Lab Results Last 24 Hrs: Laboratory Results - last 24 hr 11/29/19 11/29/19 11/29/19 Range/Units 15:00 15:00 16:55 WBC 14.57 H (4.0-11.0) K/uL RBC 4.75 (4.50-5.90) M/uL Hgb 14.9 (13.0-17.0) g/dL Hct 44.2 (38.0-50.0) % MCV 93.1 (80.0-98.0) fL MCH 31.4 (27.0-32.0) pg MCHC 33.7 (31.0-37.0) g/dL RDW Std Deviation 44.9 (28.0-62.0) fl RDW Coeff of Uday 13 (11.0-15.0) % Plt Count 287 (150-400) K/uL MPV 10.00 (7.40-12.00) fL Neut % (Auto) 79.9 (48.0-80.0) % Lymph % (Auto) 16.3 (16.0-40.0) % [place] % (Auto) 3.6 (0.0-15.0) % Eos % (Auto) 0.1 (0.0-7.0) % Baso % (Auto) 0.1 (0.0-1.5) % Neut # (Auto) 11.7 H (1.4-5.7) K/uL Lymph # (Auto) 2.4 (0.6-2.4) K/uL [place] # (Auto) 0.5 (0.0-0.8) K/uL Eos # (Auto) 0.0 (0.0-0.7) K/uL Baso # (Auto) 0.0 (0.0-0.1) K/uL Nucleated RBC % 0.0 /100WBC Nucleated RBCs # 0 K/uL Sodium 138 (136-148) mmol/L Potassium 3.7 (3.5-5.1) mmol/L Chloride 101 (98-107) mmol/L Carbon Dioxide 24.0 (21.0-32.0) mmol/L BUN 20 H (7.0-18.0) mg/dL Creatinine 1.1 (0.8-1.3) mg/dL Est Cr Clr Drug Dosing 92.82 mL/min Estimated GFR (MDRD) > 60.0 ml/min Glucose 154 H (74-106) mg/dL Calcium 9.3 (8.5-10.1) mg/dL Total Bilirubin 0.5 (0.2-1.0) mg/dL AST 18 (15-37) IU/L ALT 27 (14-63) IU/L Alkaline Phosphatase 87 (46-116) U/L Total Protein 7.8 (6.4-8.2) g/dL Albumin 4.5 (3.4-5.0) g/dL Globulin 3.3 (2.6-4.0) g/dL Albumin/Globulin Ratio 1.4 (0.9-1.6) Lipase 99 (73-393) U/L Urine Color Urine Appearance Urine pH (5.0-8.0) Ur Specific Cade (1.001-1.035) Urine Protein (NEGATIVE) mg/dL Urine Glucose (UA) (NEGATIVE) mg/dL Urine Ketones (NEGATIVE) mg/dL Urine Occult Blood (NEGATIVE) Urine Nitrite (NEGATIVE) Urine Bilirubin (NEGATIVE) Urine Urobilinogen (<2.0) EU/dL Ur Leukocyte Esterase (NEGATIVE) Urine RBC (0-2/HPF) Urine WBC (0-5/HPF) Ur Epithelial Cells (NONE-FEW) Urine Bacteria (NEGATIVE) SARS-CoV-2 RNA (RT-PCR) NEGATIVE (NEGATIVE) 11/30/19 Range/Units 01:05 WBC (4.0-11.0) K/uL RBC (4.50-5.90) M/uL Hgb (13.0-17.0) g/dL Hct (38.0-50.0) % MCV (80.0-98.0) fL MCH (27.0-32.0) pg MCHC (31.0-37.0) g/dL RDW Std Deviation (28.0-62.0) fl RDW Coeff of Uday (11.0-15.0) % Plt Count (150-400) K/uL MPV (7.40-12.00) fL Neut % (Auto) (48.0-80.0) % Lymph % (Auto) (16.0-40.0) % [place] % (Auto) (0.0-15.0) % Eos % (Auto) (0.0-7.0) % Baso % (Auto) (0.0-1.5) % Neut # (Auto) (1.4-5.7) K/uL Lymph # (Auto) (0.6-2.4) K/uL [place] # (Auto) (0.0-0.8) K/uL Eos # (Auto) (0.0-0.7) K/uL Baso # (Auto) (0.0-0.1) K/uL Nucleated RBC % /100WBC Nucleated RBCs # K/uL Sodium (136-148) mmol/L Potassium (3.5-5.1) mmol/L Chloride (98-107) mmol/L Carbon Dioxide (21.0-32.0) mmol/L BUN (7.0-18.0) mg/dL Creatinine (0.8-1.3) mg/dL Est Cr Clr Drug Dosing mL/min Estimated GFR (MDRD) ml/min Glucose (74-106) mg/dL Calcium (8.5-10.1) mg/dL Total Bilirubin (0.2-1.0) mg/dL AST (15-37) IU/L ALT (14-63) IU/L Alkaline Phosphatase (46-116) U/L Total Protein (6.4-8.2) g/dL Albumin (3.4-5.0) g/dL Globulin (2.6-4.0) g/dL Albumin/Globulin Ratio (0.9-1.6) Lipase (73-393) U/L Urine Color YELLOW Urine Appearance CLEAR Urine pH 6.0 (5.0-8.0) Ur Specific Cade 1.020 (1.001-1.035) Urine Protein NEGATIVE (NEGATIVE) mg/dL Urine Glucose (UA) NEGATIVE (NEGATIVE) mg/dL Urine Ketones NEGATIVE (NEGATIVE) mg/dL Urine Occult Blood NEGATIVE (NEGATIVE) Urine Nitrite NEGATIVE (NEGATIVE) Urine Bilirubin NEGATIVE (NEGATIVE) Urine Urobilinogen 0.2 (<2.0) EU/dL Ur Leukocyte Esterase NEGATIVE (NEGATIVE) Urine RBC 0-1 (0-2/HPF) Urine WBC 1-3 (0-5/HPF) Ur Epithelial Cells RARE (NONE-FEW) Urine Bacteria RARE (NEGATIVE) SARS-CoV-2 RNA (RT-PCR) (NEGATIVE) Med Orders - Current: Current Medications Diphenhydramine HCl (Benadryl) 25 mg IVPUSH Q4H PRN PRN Reason: Itching Hydromorphone HCl (Dilaudid) 0.5 mg IVPUSH Q1H PRN PRN Reason: Pain (severe 7-10) Acetaminophen 1,000 mg/ Premix 100 mls @ 400 mls/hr IV Q6H PRN PRN Reason: Pain Lactated Ringer's (Ringers, Lactated) 1,000 mls @ 125 mls/hr IV ASDIRECTED [facility] Last Admin: 11/30/19 04:05 Dose: 125 mls/hr Documented by: Ketorolac Tromethamine (Toradol) 10 mg PO Q6H PRN PRN Reason: Abdominal Pain Stop: 12/04/19 20:08 Ondansetron HCl (Zofran) 4 mg IVPUSH Q6H PRN PRN Reason: Nausea/Vomiting Oxycodone/Acetaminophen (Percocet 325-5 Mg) 2 tab PO Q4H PRN PRN Reason: Pain (moderate 4-6) Sodium Chloride (Saline Flush) 2.5 ml FLUSH ASDIRECTED PRN PRN Reason: Keep Vein Open Last Admin: 11/29/19 15:31 Dose: 2.5 ml Documented by: Sodium Chloride (Saline Flush) 10 ml FLUSH ASDIRECTED PRN PRN Reason: Keep Vein Open Last Admin: 11/29/19 15:31 Dose: 10 ml Documented by: Sodium Chloride (Saline Flush) 2.5 ml FLUSH ASDIRECTED PRN PRN Reason: Keep Vein Open Last Admin: 11/29/19 15:31 Dose: 2.5 ml Documented by: Sodium Chloride (Saline Flush) 10 ml FLUSH ASDIRECTED PRN PRN Reason: Keep Vein Open Sodium Chloride (Saline Flush) 2.5 ml FLUSH ASDIRECTED PRN PRN Reason: Keep Vein Open Sodium Chloride (Normal Saline) 10 ml IV ASDIRECTED PRN PRN Reason: IV Use Discontinued Medications Bupivacaine HCl (Marcaine 0.5%) Confirm Administered Dose 30 ml .ROUTE .STK-MED ONE Stop: 11/29/19 18:19 Fentanyl (Sublimaze) Confirm Administered Dose 250 mcg .ROUTE .STK-MED ONE Stop: 11/29/19 18:17 Fentanyl (Sublimaze) 50 mcg IVPUSH Q5M PRN PRN Reason: Pain Glycopyrrolate (Robinul) Confirm Administered Dose 0.2 mg .ROUTE .STK-MED ONE Stop: 11/29/19 18:17 Hydromorphone HCl (Dilaudid) 0.5 mg IVPUSH Q1H PRN PRN Reason: Pain (severe 7-10) Sodium Chloride (Normal Saline) 1,000 mls @ 999 mls/hr IV BOLUS ONE Stop: 11/29/19 15:58 Last Admin: 11/29/19 15:03 Dose: 999 mls/hr Documented by: Lactated Ringer's (Ringers, Lactated) 1,000 mls @ 150 mls/hr IV STAT STA Stop: 11/29/19 23:32 Last Admin: 11/29/19 18:23 Dose: 150 mls/hr Documented by: Piperacillin Sod/Tazobactam (Sod 3.375 gm/ Sodium Chloride) 50 mls @ 100 mls/hr IV ONETIME ONE Stop: 11/29/19 17:23 Last Admin: 11/29/19 17:00 Dose: 100 mls/hr Documented by: Iopamidol (Isovue-300 (61%)) 100 ml IVPUSH ONETIME STA Stop: 11/29/19 16:17 Last Admin: 11/29/19 16:17 Dose: 100 ml Documented by: Ketorolac Tromethamine (Toradol) Confirm Administered Dose 30 mg .ROUTE .STK-MED ONE Stop: 11/29/19 18:17 Lidocaine (Xylocaine-Mpf 2%) Confirm Administered Dose 5 ml .ROUTE .STK-MED ONE Stop: 11/29/19 18:17 Midazolam HCl (Versed 1 Mg/Ml) Confirm Administered Dose 2 mg .ROUTE .STK-MED ON E Stop: 11/29/19 18:17 Morphine Sulfate (Morphine) 4 mg IVPUSH Q2H PRN PRN Reason: Pain (moderate 4-6) Last Admin: 11/29/19 15:29 Dose: 4 mg Documented by: Morphine Sulfate (Morphine) 4 mg IVPUSH ONETIME ONE Stop: 11/29/19 15:00 Last Admin: 11/29/19 15:03 Dose: 4 mg Documented by: Ondansetron HCl (Zofran) 4 mg IVPUSH ONETIME ONE Stop: 11/29/19 14:59 Last Admin: 11/29/19 15:03 Dose: 4 mg Documented by: Ondansetron HCl (Zofran) Confirm Administered Dose 4 mg .ROUTE .STK-MED ONE Stop: 11/29/19 18:17 Propofol (Diprivan 20 Ml) Confirm Administered Dose 200 mg .ROUTE .STK-MED ONE Stop: 11/29/19 18:17 Rocuronium [place] (Rocuronium [place]) Confirm Administered Dose 50 mg .ROUTE .STK-MED ONE Stop: 11/29/19 18:17 Sugammadex Sodium (Bridion) Confirm Administered Dose 200 mg .ROUTE .STK-MED ONE Stop: 11/29/19 18:28 - Exam Wound/Incisions: Healing Well, Dressing Dry and Intact General: Alert, Oriented, Cooperative Lungs: Normal Respiratory Effort Cardiovascular: Regular Rate GI/Abdominal Exam: Soft, Non-Tender, No Distention, No Mass Skin: Warm, Dry, Intact Neurological: No New Focal Deficit Psy/Mental Status: Alert, Normal Affect Sepsis Event Note - Evaluation Sepsis Screening Result: No Definite Risk - Focused Exam Vital Signs: Vital Signs Temp Pulse Resp BP Pulse Ox 11/30/19 07:15 36.2 C 61 16 113/57 L 97 11/30/19 04:32 36.3 C 73 18 107/76 96 11/30/19 00:45 62 14 110/47 L 96 11/29/19 23:45 61 14 107/60 96 11/29/19 23:20 36.3 C 62 18 107/51 L 96 11/29/19 22:45 71 12 107/63 97 11/29/19 22:15 70 12 125/72 96 11/29/19 21:45 73 12 116/68 98 11/29/19 21:30 67 14 120/70 97 Date Exam was Performed: 11/30/19 Time Exam was Performed: 09:26 - Problem List & Annotations (1) Appendicitis SNOMED Code(s): 25967161 Code(s): K37 - UNSPECIFIED APPENDICITIS Status: Acute Current Visit: Yes Qualifiers: Appendicitis type: acute appendicitis - Problem List Review Problem List Initiated/Reviewed/Updated: Yes - My Orders Last 24 Hours: Active Orders 24 hr Category Date Time Status Patient Status [ADT] Routine ADT 11/29/19 20:05 Active Intake and Output [RC] Q12H Care 11/29/19 20:06 Active Oxygen Therapy [RC] PRN Care 11/29/19 20:05 Active RT Incentive Spirometry [RC] Q1HWA Care 11/29/19 20:05 Active Ready for Discharge [RC] PER UNIT ROUTINE Care 11/30/19 09:24 Ordered Up ad Cindy [RC] ASDIRECTED Care 11/29/19 20:05 Active Vital Signs [RC] Q4H Care 11/29/19 20:05 Active Regular Diet [DIET] Diet 11/30/19 Breakfast Active Acetaminophen [Ofirmev] 1,000 mg Med 11/29/19 18:25 Active Premix Bag 1 bag IV Q6H Acetaminophen/oxyCODONE [Percocet 325-5 MG] Med 11/29/19 20:05 Active 2 tab PO Q4H PRN HYDROmorphone [Dilaudid] Med 11/30/19 07:40 Active 0.5 mg IVPUSH Q1H PRN Ketorolac [Toradol] Med 11/29/19 20:07 Active 10 mg PO Q6H PRN Lactated Ringers [Ringers, Lactated] 1,000 ml Med 11/29/19 20:15 Active IV ASDIRECTED Ondansetron [Zofran] Med 11/29/19 20:05 Active 4 mg IVPUSH Q6H PRN Sodium Chloride 0.9% [Normal Saline] Med 11/29/19 20:05 Active 10 ml IV ASDIRECTED PRN Sodium Chloride 0.9% [Saline Flush] Med 11/29/19 14:58 Active 10 ml FLUSH ASDIRECTED PRN Sodium Chloride 0.9% [Saline Flush] Med 11/29/19 20:05 Active 10 ml FLUSH ASDIRECTED PRN Sodium Chloride 0.9% [Saline Flush] Med 11/29/19 14:58 Active 2.5 ml FLUSH ASDIRECTED PRN Sodium Chloride 0.9% [Saline Flush] [facility] 11/29/19 14:58 Active 2.5 ml FLUSH ASDIRECTED PRN Sodium Chloride 0.9% [Saline Flush] Med 11/29/19 20:05 Active 2.5 ml FLUSH ASDIRECTED PRN diphenhydrAMINE [Benadryl] [facility] 11/29/19 20:05 Active 25 mg IVPUSH Q4H PRN Peripheral IV Insertion Adult [OM.PC] Urgent Oth 11/29/19 20:05 Ordered Saline Lock Insert [OM.PC] Stat Ot 11/29/19 14:58 Ordered Resuscitation Status Routine Resus Stat 11/29/19 20:05 Ordered Medication Orders Diphenhydramine HCl (Benadryl) 25 mg IVPUSH Q4H PRN PRN Reason: Itching Hydromorphone HCl (Dilaudid) 0.5 mg IVPUSH Q1H PRN PRN Reason: Pain (severe 7-10) Acetaminophen 1,000 mg/ Premix 100 mls @ 400 mls/hr IV Q6H PRN PRN Reason: Pain Lactated Ringer's (Ringers, Lactated) 1,000 mls @ 125 mls/hr IV ASDIRECTED [facility] Last Admin: 11/30/19 04:05 Dose: 125 mls/hr Documented by: AGUSTÍN Ketorolac Tromethamine (Toradol) 10 mg PO Q6H PRN PRN Reason: Abdominal Pain Stop: 12/04/19 20:08 Ondansetron HCl (Zofran) 4 mg IVPUSH Q6H PRN PRN Reason: Nausea/Vomiting Oxycodone/Acetaminophen (Percocet 325-5 Mg) 2 tab PO Q4H PRN PRN Reason: Pain (moderate 4-6) Sodium Chloride (Saline Flush) 2.5 ml FLUSH ASDIRECTED PRN PRN Reason: Keep Vein Open Last Admin: 11/29/19 15:31 Dose: 2.5 ml Documented by: VIALMEL Sodium Chloride (Saline Flush) 10 ml FLUSH ASDIRECTED PRN PRN Reason: Keep Vein Open Last Admin: 11/29/19 15:31 Dose: 10 ml Documented by: VIALMEL Sodium Chloride (Saline Flush) 2.5 ml FLUSH ASDIRECTED PRN PRN Reason: Keep Vein Open Last Admin: 11/29/19 15:31 Dose: 2.5 ml Documented by: VIALMEL Sodium Chloride (Saline Flush) 10 ml FLUSH ASDIRECTED PRN PRN Reason: Keep Vein Open Sodium Chloride (Saline Flush) 2.5 ml FLUSH ASDIRECTED PRN PRN Reason: Keep Vein Open Sodium Chloride (Normal Saline) 10 ml IV ASDIRECTED PRN PRN Reason: IV Use - Plan Plan (Free Text/Narrative):: Patient is doing well today. He has not used pain medication. His vitals are stable. He is tolerating a regular diet. He and I discussed my discharge instructions with an school photographer. He is ok to discharge home.
== END 2019-11-30 10:25 | disposition home or self-care (01) ==
LOC: MW.ED 14:40 → MW.SDS 17:06 → MW.MS 21:20 → MW.SDS 11-30 10:25
PROVIDERS: ATTEND Surgery
DX: K35.80 Unspecified acute appendicitis (principal)
CPT/HCPCS: 00840; 36415; 74177; 74177-26; 80053; 81001; 83690; 85025; 88304; 96365; 96375; 99283; 99285-25; C1776; J1885; J2001; J2250; J2270; J2405; J2543; J2704; J3010; J3490; J7030; J7050; J7120; Q9967; U0002